=== PATIENT | male | born 1940 | race African-American/Black ===

== ENCOUNTER 2018-10-12 05:09 | Day surgery (SDC) ==
--- NOTE | 2018-10-08 14:29 | EKG Report ---
Test Performed on : 10/08/2018 2:25:01 PM Test Reason : pat Blood Pressure : / mmHG Vent. Rate : 062 BPM Atrial Rate : 062 BPM P-R Int : 182 ms QRS Dur : 100 ms QT Int : 392 ms P-R-T Axes : 056 -22 -10 degrees QTc Int : 397 ms Normal sinus rhythm. with sinus arrhythmia. Normal ECG No previous ECGs available Confirmed by Yfn Padilla MD ([id number]) on 10/08/2018 4:12:12 PM
[2018-10-08 14:42] LABS: HEMATOCRIT 37.4 % (42.0-52.0); HEMOGLOBIN 12.4 g/dL (14.0-18.0); MCH 29.3 PG (27-31); MCHC 33.2 g/dL (33-37); MCV 88.4 FL (81-99); MPV 10.2 FL (7.4-10.4); RBC 4.23 XMIL (4.7-6.1); RDW 13.8 % (11.5-14.5); WBC 8.27 X1000 (4.8-10.8)
[2018-10-08 14:59] LABS: CALCIUM 9.7 mg/dL (8.8-10.2); CREATININE 1.4 mg/dL (0.7-1.2)
[2018-10-12] MEDS ORDERED: LR 1,000 ML ONE (06:02)
[2018-10-12] MEDS ORDERED: KEFZOL 1 GM/D5W 2 GM/100 ML IVPB ONE (06:02)
[2018-10-12] MEDS ORDERED: MARCAINE 0.25% PF/EPI 1:200,000 ONE (06:27)
[2018-10-12] MEDS ORDERED: DIPRIVAN 1% ONE (06:31)
[2018-10-12] MEDS ORDERED: ZEMURON ONE (07:15)
[2018-10-12] MEDS ORDERED: XYLOCAINE-MPF 2% ONE (07:15)
[2018-10-12] MEDS ORDERED: QUELICIN (DOSE) ONE (07:15)
[2018-10-12] MEDS ORDERED: ZOFRAN ONE (07:15)
[2018-10-12] MEDS ORDERED: DECADRON ONE (07:15)
[2018-10-12] MEDS ORDERED: ROBINUL ONE (08:15)
[2018-10-12] MEDS ORDERED: NEOSTIGMINE ONE (08:16)
--- NOTE | 2018-10-12 10:07 | OPERATIVE NOTE ---
PROCEDURE DATE: 10/12/2018 PREOPERATIVE DIAGNOSIS: Left thyroid mass. POSTOPERATIVE DIAGNOSIS: Left thyroid mass. PROCEDURE: Left thyroid lobectomy. SURGEON: Sachin Luis MD. HOOP MAKER MACHINE: Dr. Gomez. Dr. Gomez assisted with the entirety of the case. His presence was crucial to identification of anatomy. ANESTHESIA: General tracheal. INTRAOPERATIVE FINDINGS: Preliminary pathology showed nodular hyperplasia. COMPLICATIONS: None at the time of dictation. ESTIMATED BLOOD LOSS: 30 mL. SPECIMEN REMOVED: Thyroid lobe. BRIEF HISTORY: A 78-year-old male with an enlarging left thyroid lobe. We had previously biopsied, it had been benign but given the fact that it enlarged, we elected do a lobectomy. The risks, benefits, and alternatives were discussed. Risks including, but not limited to bleeding, infection, risk of anesthesia discussed with the patient. We also discussed the risk of damaging surrounding tissues. All questions answered. DESCRIPTION PROCEDURE: After informed consent was obtained, the patient brought to the operative theatre, transferred to the operative table, placed in supine position. General endotracheal anesthesia was then performed without complication. A formal time-out was then performed confirming patient and date of procedure. All were in agreement. At that time, attention was turned to the neck. We made an incision 2 fingerbreadths above the sternal notch, carried it all way down to the platysma, made subplatysmal flaps. We then went to the median raphe of the strap muscles to encounter the left thyroid lobe. It had deviated the trachea over slightly and was enlarged. We bluntly dissected out around the straps to around the thyroid. We turned our attention superiorly, dissected out the pole. There were 2 prominent large vessels that we had to ligate but we were able to bring it down. We were able to eviscerate the thyroid lobe. We took our time to do a meticulous dissection to identify the recurrent laryngeal nerve, both parathyroid glands, and we dissected down inferiorly and removed the thyroid and completely transected across the isthmus. We reexamined the area, there was no bleeding, no injury to surrounding tissues. We irrigated it out, closed the strap muscles, closed the platysma and closed the skin. Preliminary pathology came back benign. We will watch him overnight in the hospital. cc: Sachin Luis MD
[2018-10-12] MEDS ORDERED: NORCO-5 PO PRN (10:10)
[2018-10-12] MEDS ORDERED: ZOFRAN IV PRN (10:10)
[2018-10-12] MEDS ORDERED: LIPITOR PO SCH (21:00)
[2018-10-13 08:14] VITALS: BP 141/60
[2018-10-13] MEDS ORDERED: INDERAL LA PO SCH (09:00)
[2018-10-13] MEDS ORDERED: KLOR-CON PO SCH (09:00)
[2018-10-13] MEDS ORDERED: ZYLOPRIM PO SCH (09:00)
[2018-10-13] MEDS ORDERED: HYZAAR 50/12.5 MG PO SCH (09:00)
--- NOTE | 2018-10-13 10:48 | GENERAL SURGERY PROGRESS NOTE ---
DATE: 10/13/2018 SUBJECTIVE: Ms Mcghee is doing generally well. OBJECTIVE: Vital signs: He is afebrile, heart rate 63, blood pressure 141/60. HEENT: His Chvostek's fermin is negative. His bandage is dry. Neck: Not swollen. PLAN: The plan will be discharged. He is already scheduled to see Dr. Luis in followup on the . He can remove his bandage in 48 hours. We answered his questions. cc: MD Sachin Montiel MD
== END 2018-10-13 11:48 | disposition home or self-care (01) ==
LOC: PAT 05:09 → OPS 05:09 → 4N 05:09 → OPS 10-13 11:48
PROVIDERS: ATTEND Surgery